=== PATIENT | male | born 2000 | race Caucasian/White ===

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

== ENCOUNTER 2021-05-22 16:22 | Outpatient (REF) | payer OTHER, SELFPAY ==
[2021-05-22 19:31] LABS: Anion Gap 9.9 mmol/L (3-11); BUN 14 mg/dL (7-18); CO2 29.1 mmol/L (21.0-32.0); CREATININE 0.7 mg/dL (0.70-1.30); Calcium 9.9 mg/dL (8.5-10.1); Chloride 100 mmol/L (98-107); Glucose 97 mg/dL (74-106); Potassium 4.4 mmol/L (3.5-5.1); Sodium 139 mmol/L (136-145); TSH (W/Ref FT4) 1.06 uIU/mL (0.52-4.13)
[2021-05-25 11:07] LABS: COVID-19 RT-PCR UVMMC Result Negative (Negative)
== END 2021-05-22 16:23 | disposition home or self-care (01) ==
LOC: NCHCN 16:22
PROVIDERS: PCP Nurse Practitioner Family; Visit Provider Family Medicine
DX: R63.4 Abnormal weight loss (principal); R19.7 Diarrhea, unspecified; Z20.822 Contact with and (suspected) exposure to COVID-19
CPT/HCPCS: 80048; U0003; 84443

== ENCOUNTER 2022-02-07 15:27 | Outpatient (REF) | payer OTHER, SELFPAY ==
[2022-02-07 20:33] LABS: ESR 8 mm/hr (0-15)
[2022-02-07 21:06] LABS: C-Reactive Protein 1.11 mg/dL (0.0-0.3)
== END 2022-02-07 15:28 | disposition home or self-care (01) ==
LOC: NCHCN 15:27
PROVIDERS: PCP Nurse Practitioner Family; Visit Provider Family Medicine
DX: R19.7 Diarrhea, unspecified (principal)
CPT/HCPCS: 85652; 86140

== ENCOUNTER 2023-02-27 16:18 | Outpatient (REF) | payer OTHER, SELFPAY ==
[2023-03-02 14:19] LABS: Chlamydia Result Negative (Negative); GC Result Negative (Negative)
== END 2023-02-27 16:19 | disposition home or self-care (01) ==
LOC: NCHCN 16:18
PROVIDERS: PCP Nurse Practitioner Family; Visit Provider Family Medicine
DX: Z11.3 Encounter for screening for infections with a predominantly sexual mode of transmission (principal)
CPT/HCPCS: 87491; 87591